=== PATIENT | female | born 2000 ===

== ENCOUNTER 2019-09-22 16:20 | Emergency (ER) | payer SELFPAY | END 2019-09-22 17:17 | disposition home or self-care (01) | LOC: ERS 16:20 | DX: B35.4 Tinea corporis (principal) | CPT/HCPCS: 99282 ==

== ENCOUNTER 2020-05-21 13:06 | Emergency (ER) | payer SELFPAY ==
[2020-05-21] MEDS ORDERED: Acetaminophen 325 MG TAB ONE (14:50)
== END 2020-05-21 14:55 | disposition home or self-care (01) ==
LOC: ERS 13:06
DX: S50.01XA Contusion of right elbow, initial encounter (principal); M25.551 Pain in right hip; W00.0XXA Fall on same level due to ice and snow, initial encounter
CPT/HCPCS: 99283

== ENCOUNTER 2021-10-31 13:14 | Emergency (ER) | payer SELFPAY ==
[2021-10-31] MEDS ORDERED: Ondansetron ODT 4 MG TAB ONE (14:29)
== END 2021-10-31 14:40 | disposition home or self-care (01) ==
LOC: ERS 13:14
DX: U07.1 COVID-19 (principal)
CPT/HCPCS: 99283; Q0162; U0003; U0005